=== PATIENT | female | born 1995 | race Two or more races ===

== ENCOUNTER 2020-11-30 23:13 | Emergency (ER) | payer OTHER, SELFPAY ==
[2020-11-30 23:19] VITALS: BP 142/72; PULSE 93; RESP 16; TEMP 37.2; O2SAT 98
--- NOTE | 2020-12-01 00:27 | ED_ITS ---
HPI - Female Genitourinary General Chief complaint: Urogenital-Female Stated complaint: ?UTI Time Seen by Provider: 11/30/20 23:26 Source: patient Mode of arrival: ambulatory History of Present Illness HPI Narrative: 25-year-old female with no significant past medical history presenting to the ED complaining of dysuria and urinary frequency since yesterday. Also reports lower abdominal discomfort and left low back pain. Reports episode of pinkish tinged urine. Denies fever, chills, nausea, vomiting, vaginal bleeding/discharge LMP end of September, admits to just recently changing control MD elicited complaint: dysuria and UTI Related Data Previous Rx's Medication Instructions Recorded cefuroxime axetil 250 mg PO Q12H 7 Days #14 tab 12/01/20 phenazopyridine [Pyridium] 200 mg PO TID 2 Days #5 tab 12/01/20 Allergies Allergy/AdvReac Type Severity Reaction Status Date / Time phenylephrine Allergy Unknown hives Verified 07/12/15 00:00 NADECOM Allergy Unknown RASH Uncoded 08/15/20 18:40 Review of Systems Review of Systems: Constitutional: No Weight loss, No Fever, No Chills Gastrointestinal: No Nausea, No Vomiting, No Diarrhea, No Constipation, + Abdominal pain Genitourinary: No irregular bleeding, + Dysuria, + Urinary Frequency, No Hematuria, +Urgency, No Flank Pain, No vaginal discharge Musculoskeletal: No joint pain, No Myalgias, No Joint Swelling Skin: No Skin Lesions, No rash Yes all other systems are reviewed and are negative PMFSH Past Medical History Attestation statement: The following information was validated with the patient. Social History Social History Advance Directives: No Advance Directives Information Provided: No Physical Exam Vital Signs: Vital Signs: Last Vital Signs Temp 99 F 11/30/20 23:19 Pulse 93 11/30/20 23:19 Resp 16 11/30/20 23:19 BP 142/72 H 11/30/20 23:19 Pulse Ox 98 11/30/20 23:19 Body Mass Index 0.0 Const: General: cooperative and healthy appearing Orientation/consciousness: patient oriented x3 Limitations: no limitations HENMT: Head: Yes normal to inspection Ears: hearing grossly normal bilaterally General nose exam: Normal external nose present Face and sinus: Yes normal facial exam Eyes: General: appearance normal, both eyes and all related structures EOM: EOMs intact bilaterally Neck: Neck: Yes normal visual inspection Resp: Effort & Inspection: normal respiratory effort Cardio: Rate: regular rate GI: Inspection: Yes normal to inspection Palpation (GI): Soft to palpation, nontender, no guarding and not rigid : General: Yes no CVA tenderness Back/Spine/Pelvis: Back: no CVA tenderness Skin: Rashes: no rashes Wounds: no wounds Neuro: General: patient oriented x3 Gait exam (Neuro): Normal gait present Extrem: General: Yes normal to inspection Course Course Course Narrative: * Urine infected > 1st dose of Ceftin given in the ED. Strict return precautions and worrisome signs and symptoms including continued dysuria, continued or worsening abdominal pain, fever to return to the ED MDM - Female Genitourinary MDM Narrative Medical decision making narrative: 25-year-old female with no significant past medical history presenting to the ED complaining of dysuria and urinary frequency since yesterday. On exam VSS, NAD, nontoxic, abdomen soft/nontender, no CVAT. Concern for UTI. Lower concern for pyelo, renal stone, di verticulitis/appendicitis, ovarian torsion or cyst w/o ttp on exam. Low concern for STI w/o vaginal discharge Plan: UA, U- Lab Data Labs: Lab Results 12/01/20 Range/Units 00:50 Urine Color YELLOW Urine Appearance CLOUDY Urine pH 6.0 (5.0-8.0) Ur Specific [place] 1.025 (1.005-1.025) Urine Protein 2+ H (NEG-TRACE) MG/DL Urine Glucose (UA) NEG (NEG) MG/DL Urine Ketones NEG (NEG) MG/DL Urine Blood 3+ H (NEG) Urine Nitrite NEG (NEG) Ur Leukocyte Esterase 1+ H (NEG) Urine RBC 76-150 H (0) /HPF Urine WBC 76-150 H (0-4) /HPF Ur Squamous Epith Cells 1+ /LPF Urine Bacteria 2+ /LPF Discharge Plan Discharge Clinical Impression: Urinary tract infection Patient Disposition: Home, Self-Care Instructions: Urinary Tract Infection in Women (ED) Additional Instructions: You have a urinary tract infection Ceftin as an antibiotic, take as prescribed Pyridium will help with the discomfort Make sure staying hydrated at home If the burning when you pee continues, he developed constant worsening abdominal pain, back pain, or fevers return to the ED immediately Follow up nilesh Jay Prescriptions: New cefuroxime axetil 250 mg tablet 250 mg PO Q12H 7 Days Qty: 14 RF: 0 phenazopyridine [Pyridium] 200 mg tablet 200 mg PO TID 2 Days Qty: 5 RF: 0 Referrals: Physician,Unknown [Primary Care Provider] - 2 days
[2020-12-01 01:35] LABS: Glucose Urine UA NEG (NEG); Leukocyte Esterase Urine 1+ (NEG); Nitrite Urine NEG (NEG); Specific Gravity - Urine 1.025 (1.005-1.025); Urine Blood 3+ (NEG); Urine Ketones NEG (NEG); Urine Protein 2+ MG/DL (NEG-TRACE)
[2020-12-01 01:38] LABS: Appearance Urine CLOUDY; Color Urine YELLOW
[2020-12-01 02:03] LABS: Bacteria Urine 2+ /LPF; Squamous Epithelial Cell Urine 1+ /LPF
[2020-12-01 02:06] LABS: UPreg QC Valid YES; Urine Pregnancy NEGATIVE (NEGATIVE)
[2020-12-01] MEDS: Phenazopyridine HCL 200 MG TABLET PO (02:23)
== END 2020-12-01 02:40 | disposition home or self-care (01) ==
PROVIDERS: Emergency Medicine; Emergency Provider Internal Medicine
DX: N39.0 Urinary tract infection, site not specified (principal); Z79.899 Other long term (current) drug therapy
CPT/HCPCS: 81001; 81003; 81025; 87086; 99283

== ENCOUNTER → 2021-01-23 11:44 | Outpatient (BNVA) | payer OTHER, SELFPAY | PROVIDERS: Visit Provider Advanced Practice Midwife | DX: N92.6 Irregular menstruation, unspecified (principal) | CPT/HCPCS: 81025 ==

== ENCOUNTER 2022-10-16 17:51 | Emergency (ER) | payer OTHER, SELFPAY ==
--- NOTE | 2022-10-16 19:20 | ED.ABDPAIN ---
HPI - Abdominal Pain General Chief Complaint: Abdominal Pain Stated Complaint: upper abd pain Related Data Previous Rx's Medication Instructions Recorded cefuroxime axetil 250 mg tablet 250 mg PO Q12H 7 days #14 tabs 12/01/20 phenazopyridine 200 mg tablet 200 mg PO TID 2 days #5 tabs 12/01/20 (Pyridium) vits no.130-ferrous fum 1 tab PO DAILY #30 tabs 01/23/21 27 mg iron-folic acid 800 mcg tablet ( Vitamin) Allergies Allergy/AdvReac Type Severity Reaction Status Date / Time phenylephrine Allergy Unknown hives Verified 10/16/22 19:22 topiramate Allergy Unknown Verified 10/16/22 19:23 NADECOM Allergy Unknown RASH Uncoded 10/16/22 19:22 PMFSH Family History Family History Maternal Grandmother Breast cancer Maternal Aunt Breast cancer Social History Social History Alcohol intake: never Advance Directives: No Advance Directives Information Provided: Yes Sexual orientation: Straight/Heterosexual Gender identity: Female Physical Exam ED Vital Signs: Vital Signs - 24 hr 10/16/22 19:21 Temperature 97.7 F Pulse Rate 88 Respiratory Rate 16 Blood Pressure 156/79 H Pulse Oximetry 98 Oxygen Delivery Method Room Air BMI result Body Mass Index 29.7 Course Course Course Narrative: RME--27yo F c/o epigastric abd pain radiating to back x3 hrs with assoc nausea. Pain began after eating. denies SOB, fever, chills, cough, D/C, urinary sx Abdomen soft with epigastric tenderness Labs, UA, , p.o. Maalox/Pepcid/sublingual Zofran ordered in triage Discharge Plan Discharge Clinical Impression: Abdominal pain Patient Disposition: Left Without Being Seen Interventions: LWBS Worksheet Last Done: 10/16/22 21:06 Discharge Date/Time: 10/16/22 21:06
[2022-10-16 19:21] VITALS: BP 156/79; PULSE 88; RESP 16; TEMP 36.5; O2SAT 98; BMI 29.7
--- NOTE | 2022-10-16 20:31 | PC.NURSE ---
this pct has been calling pt several times to draw labs ,with no responce ,jahaira romero aware .
== END 2022-10-16 21:06 | disposition left against medical advice (07) ==
PROVIDERS: Emergency Provider Emergency Medicine
DX: R10.9 Unspecified abdominal pain (principal); Z79.899 Other long term (current) drug therapy
CPT/HCPCS: 99282; 99283

== ENCOUNTER 2024-01-06 17:59 | Emergency (ER) | payer OTHER, SELFPAY ==
[2024-01-06 18:15] VITALS: BP 157/96; PULSE 96; RESP 14; TEMP 36.1; O2SAT 99; BMI 27.7
--- NOTE | 2024-01-06 18:16 | ED_ITS ---
HPI - Back Pain/Injury General Chief Complaint: Back Pain/Injury Stated Complaint: lower back pain Time Seen by Provider: 01/06/24 18:25 Source: patient Mode of arrival: ambulatory Limitations: no limitations History of Present Illness HPI Narrative: 28 year old female with no significant past medical history presents to the emergency department with complaints of left low back pain since last Wednesday. She reports she was seen at [facility] on Wednesday. CT back and urine negative. Prescribed diazepam with no relief in symptoms. Cyclobenzaprine also prescribed which helped with pain but made her very somnolent and she discontinued it bc she felt it was unsafe to use around her children. No trauma. Started at work and has been getting worse. No saddle anesthesias, urinary hesitancy or incontinence, paresthesias, change in range of motion or gait Related Data Previous Rx's Medication Instructions Recorded cefuroxime axetil 250 mg tablet 250 mg PO Q12H 7 days #14 tabs 12/01/20 phenazopyridine 200 mg tablet 200 mg PO TID 2 days #5 tabs 12/01/20 (Pyridium) vits no.130-ferrous fum 1 tab PO DAILY #30 tabs 01/23/21 27 mg iron-folic acid 800 mcg tablet ( Vitamin) diclofenac sodium 1 % topical gel 4 g topical QID #100 grams 01/06/24 lidocaine 5 % topical patch 1 patch topical DAILY #30 ea 01/06/24 Allergies Allergy/AdvReac Type Severity Reaction Status Date / Time phenylephrine Allergy Unknown hives Verified 10/16/22 19:22 topiramate Allergy Unknown Verified 10/16/22 19:23 NADECOM Allergy Unknown RASH Uncoded 10/16/22 19:22 Review of Systems Review of Systems: Yes all other systems are reviewed and are negative [facility] Past Medical History Attestation statement: The following information was validated with the patient. Family History Family History Maternal Grandmother Breast cancer Maternal Aunt Breast cancer Social History Social History Alcohol intake: never Advance Directives: No Advance Directives Information Provided: No Sexual orientation: Straight/Heterosexual Gender identity: Female Physical Exam Vital Signs: Vital Signs: Last Vital Signs Temp 96.9 F 01/06/24 18:15 Pulse 96 01/06/24 18:15 Resp 14 01/06/24 18:15 BP 157/96 H 01/06/24 18:15 Pulse Ox 99 01/06/24 18:15 O2 Del Method Room Air 01/06/24 18:15 BMI result Body Mass Index 27.7 Nursing notes and vital signs reviewed. GENERAL APPEARANCE: A&0 x 4, generally well appearing, no acute distress HENMT: Normal to inspection, atraumatic, face symmetrical. Normal external ears, nose, and oropharynx clear. EYE: PERRLA, EOM intact, structures appear normal NECK: Supple without stiffness or restricted ROM. HEART: Normal rate and regular rhythm, normal S1/S2, no M/R/G LUNGS: LS CTA, moving air well. Able to speak in complete sentences. No crackles, wheezes, or rhonchi auscultated BACK: No CVAT, no obvious deformity. Tenderness to low back on palpation. No swelling, erythema, or ecchymosis EXTREMITIES: Moving all extremities without difficulty. Normal capillary refill. NEUROLOGICAL: Alert and oriented, moving all 4 extremities with equal strength. CN not formally tested but appearing grossly intact. Observed to ambulate with normal gait. Cognition normal SKIN: Warm and dry without any lesions, rash, or visible sores Medical Decision Making Medical Decision Making MDM Narrative: Old records reviewed for previous imaging, lab studies, ECGs, and notes. Patient was assessed the emergency department with no acute distress or toxicity noted. Patient's symptoms are consistent with a low back strain with low suspicion at this time for stenosis, cauda equina, abscess, sepsis, or malignancy. Lidocaine patches and diclofenac ointment since patient preferred pharmacy for further management of discomfort. Patient is safe for discharge at this time with plan for [id number] Tylenol and/or NSAID such as ibuprofen or naproxen for fever/discomfort with dosing as per packaging. HPI, PE, diagnostics, and plan discussed with patient and family with no unanswered questions at this time. Strict return precautions given to return to the emergency department with new, worsening, or concerning emergent symptoms. Recommended to follow-up with there primary care provider in 24-48 hours for further treatment and management. Differential Diagnosis Differential Diagnoses: The differential diagnosis associated with the presentation includes But not limited to strain, sprain, nephrolithiasis, pyelonephritis cystitis, cauda equina, epidural abscess, stenosis, sepsis, or malignancy Discharge Plan Discharge Clinical Impression: Strain of lumbar region Patient Disposition: Home, Self-Care Instructions: Back Pain (ED), Lower Back Exercises (ED) Additional Instructions: Your seen in the emergency department for concerns of low back pain. Lidocaine patches and diclofenac ointment sent to preferred pharmacy. You are safe for discharge at this time with plan for management of fever or discomfort with [id number] Tylenol and/or NSAID such as ibuprofen or naproxen with dosing as per packaging. Please return to the emergency department with new, worsening, or concerning emergent symptoms. Recommended to follow-up with your primary care provider in 24-48 hours for further treatment and management. Thank you for choosing [facility]. Prescriptions: New lidocaine 5 % adhesive patch,medicated 1 patch topical DAILY Qty: 30 0RF Rx Instructions: leave on most painful area for up to 12 hrs diclofenac sodium 1 % gel 4 g topical QID Qty: 100 0RF Rx Instructions: apply to low back No Action cefuroxime axetil 250 mg tablet 250 mg PO Q12H 7 Days Qty: 14 0RF phenazopyridine [Pyridium] 200 mg tablet 200 mg PO TID 2 Days Qty: 5 0RF Vitamin 27 mg iron- 800 mcg tablet 1 tab PO DAILY Qty: 30 12RF Referrals: [facility] – [place] Family Medicine [Provider Group] [facility] – [place] [facility] [Provider Group] [facility] – [place] [facility] [Provider Group] Stand Alone Forms: Work/School Release Interventions: ED Discharge Assessment Last Done: 01/06/24 18:41 Discharge Date/Time: 01/06/24 18:41 Print Language: Hungarian
== END 2024-01-06 18:42 | disposition home or self-care (01) ==
PROVIDERS: Emergency Provider Emergency Medicine; PCP Registered Nurse
DX: S39.012A Strain of muscle, fascia and tendon of lower back, initial encounter (principal); X58.XXXA Exposure to other specified factors, initial encounter; Y93.9 Activity, unspecified; Y92.9 Unspecified place or not applicable; Y99.8 Other external cause status; Z79.899 Other long term (current) drug therapy
CPT/HCPCS: 99282; 99283

== ENCOUNTER 2025-01-04 16:23 | Emergency (ER) | payer OTHER, SELFPAY ==
--- NOTE | ~2025-01-04 | XR_ITS ---
EXAMINATION: XR CHEST CLINICAL INFORMATION: cough COMPARISON: None available. TECHNIQUE: Frontal view of the chest was obtained. FINDINGS: No significant abnormality is noted involving the heart, lungs, mediastinum, bony thorax or soft tissues. XR/XR chest 1V IMPRESSION: Normal chest. Electronically signed by: Von Borja MD 01/04/2025 04:53 PM [facility]
[2025-01-04 16:30] VITALS: BP 144/92; PULSE 104; RESP 20; TEMP 36.9; O2SAT 100; BMI 27.7
--- NOTE | 2025-01-04 16:33 | ED_ITS ---
HPI - SOB/Dyspnea General Chief Complaint: Dyspnea Stated Complaint: sob,hoarseness Time Seen by Provider: 01/04/25 18:26 Source: patient Limitations: no limitations History of Present Illness ED Provider: Marianna Tubbs PA-C HPI Narrative: 29-year-old female who presents with cough and cold symptoms x4 days. Associated sore throat, pharyngitis, cough and shortness of breath. Denies trismus, drooling, chest pain or known fever. No sick contacts with same symptoms. Denies nausea vomiting diarrhea. Related Data Previous Rx's ?Medication ?Instructions ?Recorded cefuroxime axetil 250 mg tablet 250 mg PO Q12H 7 days #14 tabs 12/01/20 phenazopyridine 200 mg tablet 200 mg PO TID 2 days #5 tabs 12/01/20 (Pyridium) vits no.130-ferrous fum 1 tab PO DAILY #30 tabs 01/23/21 27 mg iron-folic acid 800 mcg tablet ( Vitamin) diclofenac sodium 1 % topical gel 4 g topical QID #100 grams 01/06/24 lidocaine 5 % topical patch 1 patch topical DAILY #30 ea 01/06/24 Allergies Allergy/AdvReac Type Severity Reaction Status Date / Time phenylephrine Allergy Unknown hives Verified 01/04/25 16:30 topiramate Allergy Unknown Verified 01/04/25 16:30 NADECOM Allergy Unknown RASH Uncoded 01/04/25 16:30 Review of Systems Review of Systems: Yes all other systems are reviewed and are negative Constitutional: Constitutional: Reports fatigue, Reports fever(s) and Reports malaise ENT: Reports sore throat Cardiovascular: Cardiovascular: Denies chest pain and Reports dyspnea Respiratory: Respiratory: Denies chest congestion, Reports cough, Reports dyspnea and Denies wheezing Gastrointestinal: Gastrointestinal: Denies diarrhea, Denies nausea and Denies vomiting Endocrine: Endocrine: Reports fatigue Allergic/Immunologic: Allergic/Immunologic: Denies wheezing PMFSH Past Medical History Attestation statement: The following information was validated with the patient. Family History Family History Maternal Grandmother Breast cancer Maternal Aunt Breast cancer Social History Social History Alcohol intake: never Advance Directives: No Advance Directives Information Provided: No Do you have a plan to hurt others: No Plan Sexual orientation: Straight/Heterosexual Gender identity: Female Physical Exam Vital Signs: Vital Signs: Last Vital Signs Temp 98.4 F 01/04/25 18:30 Pulse 100 01/04/25 18:30 Resp 16 01/04/25 18:30 BP 155/87 H 01/04/25 18:30 Pulse Ox 99 01/04/25 18:30 O2 Del Method Room Air 01/04/25 18:30 BMI result Body Mass Index 27.7 Const: Other: Alert well-appearing Orientation/consciousness: patient oriented x3 HEENT: Other: Oropharynx is erythematous, without exudate, uvula midline, no sublingual fluctuance, no swelling inferior to the jawline, hoarse quality of her voice Neck: Other: Minimal anterior cervical lymphadenopathy Resp: Effort & Inspection: normal respiratory effort Cardio: Other: Normal peripheral perfusion Skin: Other: Warm dry no rash Neuro: General: patient oriented x3, gait normal, no focal motor deficits and CN's II-XI intact bilaterally Psych: Other: Calm cooperative Course Course Course Narrative: This is a rapid medical exam performed by Marianna Tubbs PA-C. Patient is a 29-year-old female who presents with cough and cold symptoms x4 days. Associated sore throat, pharyngitis, cough and shortness of breath. Denies fever. On exam, the patient's lungs are clear, her oropharynx is erythematous without exudate, uvula midline. Plan to obtain a rapid strep, chest x-ray and viral panel. The patient is stable and can return to the waiting room pending her full medical assessment. Medical Decision Making Medical Decision Making MDM Narrative: 29-year-old female who presents with cough and cold symptoms x4 days. Associated sore throat, pharyngitis, cough and shortness of breath. Denies trismus, drooling, chest pain or known fever. No sick contacts with same symptoms. Denies nausea vomiting diarrhea. No chronic issues History: Per patient I have considered the following differential diagnoses: Viral syndrome, pn eumonia, bronchitis, strep pharyngitis, RPA, RATE QUOTING OPERATOR Plan: Viral panel, strep screen and chest x-ray were obtained from triage. Everything is negative thus far. The patient has no exam findings that are consistent with RPA or RATE QUOTING OPERATOR. She has no wheezing in her lungs are clear to suggest a new bronchitis. The patient has yet another virus causing your symptoms. We will send with home care instructions. I have independently reviewed the following tests: Labs: Viral panel negative, strep screen negative Chest x-ray: XR/XR chest 1V IMPRESSION: Normal chest. Electronically signed by: Von Borja MD 01/04/2025 04:53 PM [facility] Workstation: [id number] Lab Data Labs: Lab Results 01/04/25 Range/Units 16:46 Influenza Type A (PCR) NEGATIVE (Negative) Influenza Type B (PCR) NEGATIVE (Negative) RSV RNA Qual (PCR) NEGATIVE (Negative) SARS-CoV-2 RNA (RT-PCR) NEGATIVE (Negative) S. pyogenes GrpA CHICO Negative (Negative) Discharge Plan Discharge Clinical Impression: Acute viral syndrome, Pharyngitis, Laryngitis Patient Disposition: Home, Self-Care Instructions: Viral Syndrome (ED), Laryngitis (ED), Pharyngitis (ED) Additional Instructions: You were tested for influenza a and B, RSV and COVID, the viral panel was negative. You were screened for strep throat, this was negative your chest x- ray is clear. You have yet another virus causing your symptoms. See home care instructions. Follow up with your primary care provider as needed. Prescriptions: No Action cefuroxime axetil 250 mg tablet 250 mg PO Q12H 7 Days Qty: 14 0RF phenazopyridine [Pyridium] 200 mg tablet 200 mg PO TID 2 Days Qty: 5 0RF lidocaine 5 % adhesive patch,medicated 1 patch topical DAILY Qty: 30 0RF Rx Instructions: leave on most painful area for up to 12 hrs diclofenac sodium 1 % gel 4 g topical QID Qty: 100 0RF Rx Instructions: apply to low back Vitamin 27 mg iron- 800 mcg tablet 1 tab PO DAILY Qty: 30 12RF Stand Alone Forms: Work/School Release Print Language: Pashto
[2025-01-04 17:00] LABS: IDNOW Serial# 08D9AD1C; Strep A Nucleic Acid Negative (Negative)
[2025-01-04 17:29] LABS: Influenza A PCR NEGATIVE (Negative); Influenza B PCR NEGATIVE (Negative); Resp Syncy Virus RNA Qual PCR NEGATIVE (Negative); SARS COV2 PCR INHOUSE NEGATIVE (Negative)
[2025-01-04 18:30] VITALS: BP 155/87; PULSE 100; RESP 16; TEMP 36.9; O2SAT 99
[2025-01-04 18:58] VITALS: BP 155/87; PULSE 100; RESP 16; TEMP 36.9; O2SAT 99
== END 2025-01-04 18:58 | disposition home or self-care (01) ==
PROVIDERS: Physician Assistant Medical; Emergency Provider Emergency Medicine; PCP Registered Nurse
DX: B34.9 Viral infection, unspecified (principal); R06.02 Shortness of breath; J04.0 Acute laryngitis; R49.0 Dysphonia; R05.9 Cough, unspecified; R06.9 Unspecified abnormalities of breathing; Z03.818 Encounter for observation for suspected exposure to other biological agents ruled out
CPT/HCPCS: 0241U; 71045; 87651; 99283

== ENCOUNTER → 2025-01-04 16:32 | Outpatient (BNV) | payer OTHER, SELFPAY | PROVIDERS: PCP Registered Nurse; Visit Provider Radiology Diagnostic Radiology | DX: R07.9 Chest pain, unspecified (principal) | CPT/HCPCS: 71045 ==

== ENCOUNTER 2025-05-24 16:22 | Emergency (ER) | payer OTHER, SELFPAY ==
[2025-05-24 16:49] VITALS: BP 151/94; PULSE 87; RESP 18; TEMP 36.6; O2SAT 97; BMI 27.7
--- NOTE | 2025-05-24 16:50 | ED_ITS ---
HPI - General Adult General Chief complaint: General Medical Stated complaint: high bp Time Seen by Provider: 05/24/25 16:58 Source: patient and RN notes reviewed Mode of arrival: ambulatory Limitations: no limitations History of Present Illness ED Provider: Patricia Serrano PA-C HPI narrative: This is a 80-year-old female, with no known medical problems, who presents emergency department with complaints of elevated blood pressure reading which occurred today. Patient states that at her work they were performing vital signs screenings, and her blood pressure was found to be elevated, 150s over 110s. Patient denies any history of elevated blood pressure however states that she has been told that her primary care was watching this as she occasionally has elevated readings. She does not take her blood pressure at home. She states that she is feeling well. She admits to having a headache this morning however states that this was consistent with her migraines that she gets, and was relieved with ibuprofen. She is currently asymptomatic. Denies any current headache, dizziness, blurred vision, chest pain, shortness for breath, abdominal pain, nausea, vomiting or diarrhea. She is not . No other complaints or concerns at this time. MD complaint: Elevated blood pressure Onset (ago): day(s) Quality: aching Pain Consistency: constant Relieving factors: none Exacerbating factors: none Associated symptoms: denies other symptoms Treatments prior to arrival: none Related Data Previous Rx's ?Medication ?Instructions ?Recorded cefuroxime axetil 250 mg tablet 250 mg PO Q12H 7 days #14 tabs 12/01/20 phenazopyridine 200 mg tablet 200 mg PO TID 2 days #5 tabs 12/01/20 (Pyridium) vits no.130-ferrous fum 1 tab PO DAILY #30 ta bs 01/23/21 27 mg iron-folic acid 800 mcg tablet ( Vitamin) diclofenac sodium 1 % topical gel 4 g topical QID #100 grams 01/06/24 lidocaine 5 % topical patch 1 patch topical DAILY #30 ea 01/06/24 Allergies Allergy/AdvReac Type Severity Reaction Status Date / Time phenylephrine Allergy Unknown hives Verified 05/24/25 16:52 topiramate Allergy Unknown Verified 05/24/25 16:52 NADECOM Allergy Unknown RASH Uncoded 05/24/25 16:52 Review of Systems Review of Systems: Yes all other systems are reviewed and are negative Constitutional: Constitutional: Reports as per HPI [facility] Family History Family History Maternal Grandmother Breast cancer Maternal Aunt Breast cancer Social History Social History Alcohol intake: never Advance Directives: No Advance Directives Information Provided: No Do you have a plan to hurt others: No Plan Sexual orientation: Straight/Heterosexual Gender identity: Female Physical Exam ED Vital Signs: Vital Signs - 24 hr 05/24/25 16:49 05/24/25 17:11 Temperature 97.8 F 97.8 F Pulse Rate 87 87 Respiratory Rate 18 18 Blood Pressure 151/94 H 151/94 H Pulse Oximetry 97 97 Oxygen Delivery Method Room Air Room Air BMI result Body Mass Index 27.7 Const General: cooperative, comfortable and no acute distress Orientation/consciousness: patient oriented x3 Limitations: no limitations HENMT Head: Yes normal to inspection, Yes normocephalic and Yes atraumatic Ears: hearing grossly normal bilaterally General nose exam: Normal external nose present Face and sinus: Yes normal facial exam Mouth: Normal oral and palatal mucosa present, oropharynx normal and moist mucous membranes Throat: Yes posterior oropharynx normal Eyes General: appearance normal, both eyes and all related structures Eyelids: Yes eyelids normal Conjunctivae: conjunctivae normal Sclerae: sclerae normal Pupils: Equal, round and reactive pupils present EOM: EOMs intact bilaterally Neck Neck: Yes normal visual inspection, Yes full ROM and Yes no lymphadenopathy Lymphatic: no lymphadenopathy noted Chest Chest palpation & inspection: normal inspection of the chest Resp Effort & Inspection: normal respiratory effort and able to speak in complete sentences Auscultation: clear to auscultation bilaterally, no crackles, no rales, no rhonchi and no wheezes Cardio Rate: regular rate Rhythm: regular rhythm Heart sounds: S1 normal heart sound present and S2 normal heart sound present GI Inspection: Yes normal to inspection Skin General skin exam: no rashes or lesions noted Trauma: no lacerations or abrasions Wounds: no wounds Neuro General: patient oriented x3 and moves all extremities Cranial nerves: Yes Equal, round and reactive pupils present Extrem General: Yes normal to inspection Right upper extremity: normal to inspection Left upper extremity: normal to inspection Right lower extremity: normal to inspection Left lower extremity: normal to inspection Course Course Course Narrative: This is an RME: Additional HPI, ROS, PE not included below will be deferred to primary provider. RME assessment and note performed by: Patricia Serrano PA-C This is a [id number]-female who presents to the ER with a complaint of elevated BP. She states that at her work was performing a vital signs screening and her BP was found to be elevated. BP at work at 158/110. BP today is 151/94. She has no headache, dizziness, blurred vision. Plan: Medical Decision Making Medical Decision Making MDM Narrative: This is a 30-year-old female who presents emergency department with concerns of elevated blood pressure reading which occurred outpatient. Patient reports that she is feeling well, denies any current concerns. Blood pressure taken here in the emergency department is 151/94. Given patient is asymptomatic, no additional workup indicated at this time. I stressed the importance of getting a blood pressure cuff today, and taking it 2 times a day and recording this measure. I also discussed with patient that she should follow-up with her primary care physician. It is ill advised to start her on any hypertensive medications however I stressed if she develops any new or worsening symptoms including but not limited to lightheadedness, dizziness, blurred vision, double vision, chest pain or shortness for breath to immediately seek emergent care. She understands and agrees with plan. Patient stable for discharge Differential Diagnosis Differential Diagnoses: The differential diagnosis associated with the presentation includes Hypertensive urgency, hypertensive emergency, elevated blood pressure reading, anxiety, worried/well Discharge Plan Discharge Clinical Impression: Elevated blood pressure reading Patient Disposition: Home, Self-Care Instructions: How to Take a Blood Pressure Reading (ED) Additional Instructions: You were seen in the emergency room due to an elevated Blood pressure. Your blood pressure today was 151/94. Please take your blood pressure twice a day, please ensure that you are resting comfortably, feet planted on the floor, with a surface against your back. Rest comfortably without speaking for 5-10 minutes and take a blood pressure. Make sure you get a blood pressure cuff that goes on your upper arm. Cord this blood pressure reading. Please take these readings to your primary care physician as they can see if you need to be started on a blood pressure medication. If any new or worsening symptoms occur including but not limited to severe chest pain, dizziness, double vision, blurred vision, shortness of breath, please seek emergent care. Prescriptions: No Action cefuroxime axetil 250 mg tablet 250 mg PO Q12H 7 Days Qty: 14 0RF phenazopyridine [Pyridium] 200 mg tablet 200 mg PO TID 2 Days Qty: 5 0RF lidocaine 5 % adhesive patch,medicated 1 patch topical DAILY Qty: 30 0RF Rx Instructions: leave on most painful area for up to 12 hrs diclofenac sodium 1 % gel 4 g topical QID Qty: 100 0RF Rx Instructions: apply to low back Vitamin 27 mg iron- 800 mcg tablet 1 tab PO DAILY Qty: 30 12RF Stand Alone Forms: Work/School Release Interventions: ED Discharge Assessment Last Done: 05/24/25 17:11 Discharge Date/Time: 05/24/25 17:11 Print Language: Chinese
[2025-05-24 17:11] VITALS: BP 151/94; PULSE 87; RESP 18; TEMP 36.6; O2SAT 97
--- OUTSIDE RECORDS SUMMARY | 2025-05-24 19:53 | XMS_ITS | Clinical Summary ---
Author Organization [facility] Address [address] [place] [address] Care Team Providers Care Solar Energy System Installer Name Role Phone Justin Moreno Primary Care Provider [phone] Source Comments PLEASE NOTE, if this patient is a minor, it may be UNLAWFUL to discuss sensitive information that is contained in these records (such as FAMILY PLANNING, MENTAL HEALTH or SUBSTANCE ABUSE) with the minor patient's parent or other person without the patient's specific authorization.[facility] Allergies Active Allergy Reactions Criticality Noted Date Comments Dextromethorphan-Guaife nesin Hives,Swelling High 01/09/2016 Discovered when pt was 7 y/o Medications ibuprofen (ADVIL,MOTRIN) 600 mg tabletIndication s:Generalized headaches Take 1 Tab by mouth 4 (four) times daily as needed for pain. 60 Tab 5 03/26/2016 Active loratadine (CLARITIN) 10 mg tabletIndication s:Other seasonal allergic rhinitis Take 1 Tab by mouth once daily as needed for allergies. 30 Tab 5 03/26/2016 Active nitrofurantoin monohyd/m-cryst (MACROBID) 100 mg capsule Take 100 mg by mouth 2 (two) times daily 0 07/31/2019 Active Active Problems Problem Noted Date Diagnosed Date Encounter for gynecological examination with Papanicolaou smear of cervix 08/08/2020 Overview (08/08/2020): NEGATIVE ASCUS NEGATIVE HPV Generalized headaches 03/26/2016 Allergic rhinitis 03/26/2016 H/O ovarian cystectomy 02/24/2016 Overview (02/24/2016): Per previous PCP at [facility] 01/29/2016 Overview (01/29/2016): Inserted 12/12/15 by Toyin Lockwood DO at [facility] Women H/O gestational diabetes mellitus, not currently 01/09/2016 Immunizations Immunization Administration Dates Next Due Flu, Preservative Free 09/25/2019 Hep B, Adult/Adol (ENERGIX/RECOMBIVAX) 3 INFLUENZA, SEASONAL, INJECTABLE 09/02/2015 MMR (MMR II/Priorix) 06/16/2013 PPD 06/07/2013,05/12/2013 TDAP 09/16/2015,05/12/2013,02/15/2011 Family History Medical History Relation Name Comments Cancer Maternal Aunt 1 Breast CA Cancer Maternal Aunt 2 breast CA Hypertension Maternal Grandmother Hypertension Paternal Grandmother Mental illness Paternal Grandmother Alzhe cristal's Relation Name Status Comments Brother 1 Alive Brother 2 Alive Brother 3 Alive Brother 4 Alive Brother 5 Alive Daughter Alive Father Alive Maternal Aunt 1 Alive Maternal Aunt 2 Alive Maternal Grandmother Mother Alive Paternal Grandmother Alive Sister 1 Alive Sister 2 Alive Son Alive Social History Tobacco Use Types Packs/Day Years Used Date Smoking Tobacco: Never Smokeless Tobacco: Never Alcohol Use Standard Drinks/Week Comments No 0 (1 standard drink = 0.6 oz pur e alcohol) Social Connections Answer Date Recorded Connectedness 0 08/16/2024 Financial Resource Strain Answer Date R ecorded Financial Resource Strain 0 2018 Stress Answer Date Recorded Stress 0 09/25/2019 Physical Activity Answer Date Recorded Physical Activity 0 09/25/2019 Food Insecurity Answer Date Recorded Food 0 08/24/2024 Transportation Needs Answer Date Record ed Transportation 0 09/25/2019 Housing Stability Answer Date Recorded Housing 0 09/25/2019 Safety and Environment Answer Date Lloyd rded Safety 0 09/25/2019 Utilities Answer Date Recorded Utilities 0 09/25/2019 Employment Answer Date Recorded Stress 0 08/16/2024 Comments No Sex and Gender Information Value Date Recorded Sex Assigned at Female 09/25/2019 8:16 AM PDT Legal Sex Female 11:36 AM PDT Gender Identity Female 09/25/2019 8:16 AM PDT Sexual Orientation Straight 09/25/2019 8: 16 AM PDT Occupation Industry Job Start Date Job 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 Not on file Not on file Not on f ile Last Filed Vital Signs Vital Sign Reading Time Taken Comments Blood Pressure 126/90 07/22/2020 1:13 PM EDT Pulse 80 07/22/2020 1:13 PM EDT Temperature 36.9 C (98.4 F) 07/22/2020 1:13 PM EDT Respiratory Rate 18 07/22/2020 1:13 PM EDT Oxygen Saturation - - Inhaled Oxygen Concentration - - Weight 67.2 kg (148 lb 1.6 oz) 07/22/2020 1:13 P M EDT Height 154.9 cm (5' 1 ) 07/22/2020 1:13 PM EDT Body Mass Index 27.98 07/22/2020 1:13 PM EDT Plan of Treatment Health Maintenance Due Date Last Done Comments Anxiety Screening 1994 HPV Screening 1994 Pap + HPV 1994 Tobacco Screening 1994 HIV Screening 2009 Imm-Hepatitis B (2 of 3 - 19 + 3-dose series) 07/05/2013 06/07/2013 Annual Wellness (Adult): Ind icated (All Coverage) 09/25/2020 09/25/2019, 03/26/2016 Relationship Safety Screening/Counseling 09/25/2020 09/25/2019 Cervical Cancer Screening 07/22/2023 Hypertension Screening (#1) 07/22/2023 Pap Smear 07/22/2023 07/22/2020 [id number] ( season) 2024 Alcohol and Drug Screen 11/29/2024 09/25/2019, 01/09 Depression Annual Screen 11/29/2024 09/25/2019 Imm-Influenza (Season Ended) 2025 09/25/2019, 09/02/2015 Imm-DTaP/Tdap/Td (4 - Td or Tdap) 09/16/2025 09/16/2015, 05/12/2013, 02/15/2011 Hepatitis C Screening Completed 09/25/2019 Cervical Ablation/Cold-Knife Conization Discontinued Cervical Cryotherapy Discontinued Colposcopy Discontinued Endometrial Biopsy Discontinued Excision/Leep Discontinued HPV Genotyping Discontinued Vaginal Pap Discontinued Vulvoscopy Discontinued Procedures Procedure Name Priority Date/Time Associated Diagnosis Comments PAP, LIQUID BASED Routine 07/22/2020 1:3 8 PM EDT Encounter for gynecological examination with Papanicolaou smear of cervix HEPATITIS A,B,C PANEL Routine 09/25/2019 11:43 AM EDT Routine adult health maintenance from Last 3 Months or Most Recently Relevant to Health Maintenance Results * PAP, LIQUID BASED (07/22/2020 1:38 PM EDT) PAP NORMAL NORMAL - ABNORMAL [facility] Specimen from uterine cervix (specimen) Cervix uteri structure / Unknown 07/22/2020 1:38 PM EDT Maria Esther [facility] - 08/08/2020 5:23 PM EDT NEGATIVE ASCUS NEGATIVE HPV Maude Falcon [facility] - PATHOLOGY AND CYTOLOG Y AMBULATORY Final Result Performing Organization Address City/State/[facility] Co de Phone Number [facility] [address] [address], * HEPATITIS A,B,C PANEL (09/25/2019 11:43 AM EDT) HEPATITIS B SURFACE ANTIBODY NEGATIVE NEGATIVE [facility] HEPATITIS B SURFACE ANTIGEN NEGATIVE NEGATIVE [facility] Comment: Over the counter supplements containing high doses of biotin may interfere with this assay. If interference is suspected, patients shoud be retested after refraining from biotin supplements for 72 hours. HEPATITIS C VIRUS DIAGNOSTIC NEGATIVE NEGATIVE [facility] HEPATITIS A ANTIBODY TOTAL NEGATIVE NEGATIVE [facility] Comment: Over the counter supplements containing high doses of biotin may interfere with this assay. If interference is suspected, patients shoud be retested after refraining from biotin supplements for 72 hours. HEPATITIS B CORE ANTIBODY NEGATIVE NEGATIVE [facility] Blood specimen (specimen) Blood / Unknown 09/25/2019 11:43 AM EDT 09/25/2019 1:09 PM EDT Maria Esther [facility] - 09/25/2019 7:21 PM EDT [employer], a member of [address] [place] [address] Instructor Painting - Maira Prieto [place] [id number] ORD# [id number] Justin [facility] - BLOOD DRAW Edited Result - Final [facility] [address] [place] [address], from Last 3 Months or Most Recently Relevant to Health Maintenance Insurance [employer] Care Teams [employer] System Installer Relationship Specialty Start Date End Date Justin Moreno PA [address] [place] [id number] PCP - General Internal Medicine 08/22/19
== END 2025-05-24 17:11 | disposition home or self-care (01) ==
LOC: HO.ED 17:01
PROVIDERS: Emergency Provider Internal Medicine; PCP Registered Nurse
DX: R03.0 Elevated blood-pressure reading, without diagnosis of hypertension (principal)
CPT/HCPCS: 99282

== ENCOUNTER 2025-06-12 12:47 | Emergency (ER) | payer OTHER, SELFPAY ==
--- NOTE | ~2025-06-12 | CT_ITS ---
EXAMINATION: CT HEAD WITHOUT CONTRAST CLINICAL INFORMATION: hypertensive, THOMPSON COMPARISON: None available. TECHNIQUE: Contiguous axial imaging was performed from the skull base to vertex without intravenous administration of contrast. This CT examination was performed using dose optimization techniques as appropriate, variously including the following: *Automated exposure control *Adjustment of mA and/or kV according to patient size (this includes techniques or standardized protocols for targeted exams where dose is matched to indication/reason for exam; i.e. extremities or head) *Use of iterative reconstruction technique DLP: 692 mGy-cm FINDINGS: No acute intracranial hemorrhage, mass effect, midline shift, hydrocephalus or herniation. Avila-white matter differentiation is normal. Posterior cranial fossa contents demonstrated no acute intracranial hemorrhage or mass effect. Normal position of the cerebellar tonsils. Sellar/suprasellar region demonstrated no gross masses or hemorrhage. Tympanic cavities and mastoid cells are aerated. Poor pneumatization of the frontal sinuses. No air-fluid levels in the paranasal sinuses. No gross hematoma or masses in the intraconal or extraconal compartments of the orbits. CT/CT head/brain wo IV con IMPRESSION: No acute or structural brain abnormality by CT. Electronically signed by: Paul Lopes MD 06/12/2025 03:27 PM EDT
[2025-06-12 12:49] VITALS: BP 157/81; PULSE 93; RESP 18; TEMP 36.6; O2SAT 98; BMI 27.7
--- NOTE | 2025-06-12 12:50 | ED_ITS ---
HPI - General Adult General Chief complaint: General Medical Stated complaint: high bp Time Seen by Provider: 06/12/25 16:38 Source: patient Mode of arrival: ambulatory Limitations: no limitations History of Present Illness ED Provider: FRANCY FRANCO PA-C HPI narrative: 30 year old female with pmhx significant for migraines presents to the ED today for evaluation of elevated blood pressure readings x weeks. Reports headache which began this morning. Her BP this morning was noted to be 155/102, prompting her to come to the ED for further evaluation. She reports taking Motrin this morning without much improvement. Denies any dizziness or vision changes. Denies chest pain or shortness of breath. She was recently evaluated at our facility for elevated blood pressure readings. Her blood pressure eventually normalized and she was advised to monitor her pressures at home with PCP follow up. She has not been started on any antihypertensives. She has not attempted to contact her PCP for follow-up. Related Data Previous Rx's ?Medication ?Instructions ?Recorded cefuroxime axetil 250 mg tablet 250 mg PO Q12H 7 days #14 tabs 12/01/20 phenazopyridine 200 mg tablet 200 mg PO TID 2 days #5 tabs 12/01/20 (Pyridium) vits no.130-ferrous fum 1 tab PO DAILY #30 ta bs 01/23/21 27 mg iron-folic acid 800 mcg tablet ( Vitamin) diclofenac sodium 1 % topical gel 4 g topical QID #100 grams 01/06/24 lidocaine 5 % topical patch 1 patch topical DAILY #30 ea 01/06/24 Allergies Allergy/AdvReac Type Severity Reaction Status Date / Time phenylephrine Allergy Unknown hives Verified 06/12/25 12:52 topiramate Allergy Unknown Verified 06/12/25 12:52 NADECOM Allergy Unknown RASH Uncoded 06/12/25 12:52 Review of Systems 2 Review of Systems: Constitutional: No fever, chills, fatigue, night sweats, weight changes ENT/Mouth: No ear pain, hearing loss, nasal congestion, sinus pain, rhinorrhea, sore throat Eyes: No eye pain, swelling, redness, vision changes, discharge Cardio: No chest pain, palpitations, [place], orthopnea, peripheral edema Pulm: No SOB, cough, sputum, wheezing, dyspnea, hemoptysis GI: No nausea, vomiting, hematemesis, abdominal pain, diarrhea, constipation, hematochezia, melena : No irregular bleeding, dysuria, frequency, urgency, hesitancy, hematuria, flank pain, urinary flow changes, urinary incontinence or retention MSK: No back pain, neck pain, joint pain, myalgias Skin: No lesions, rashes Neuro: No weakness, numbness, paresthesias, LOC, dizziness, +headache Psych: No anxiety/panic, depression, SI/HI, AH/VH All other systems reviewed and are negative. [facility] Past Medical History Attestation statement: The following information was validated with the patient. Source: old records reviewed and nursing notes reviewed Family History Family History Maternal Grandmother Breast cancer Maternal Aunt Breast cancer Social History Social History Alcohol intake: current Smoked in Last 30 Days: No Use of substances other than those prescribed or required for medical reasons: No Advance Directives: No Advance Directives Information Provided: No Do you have a plan to hurt others: No Plan Sexual orientation: Straight/Heterosexual Gender identity: Female Physical Exam ED Vital Signs: Vital Signs - 24 hr 06/12/25 12:49 06/12/25 16:18 06/12/25 16:44 Temperature 98 F 97.3 F 98.3 F Pulse Rate 93 88 86 Respiratory Rate 18 16 16 Blood Pressure 157/81 H 147/91 H 146/102 H Pulse Oximetry 98 100 100 Oxygen Delivery Method Room Air Room Air Room Air 06/12/25 18:08 06/12/25 18:26 Temperature 97.6 F 97.6 F Pulse Rate 76 76 Respiratory Rate 16 16 Blood Pressure 122/74 122/74 Pulse Oximetry 97 97 Oxygen Delivery Method Room Air Room Air BMI result Body Mass Index 27.7 hypertensive, vitals are otherwise wnl General: Well appearing, in no acute distress. Skin: Warm, dry, intact. No rashes or lesions. Head: Normocephalic, atraumatic. EENT: Hearing is intact b/l. Conjunctiva clear. PERRLA. EOM intact. Moist mucous membranes.? Neck: Supple without LAD. FROM Cardiac: Chest wall symmetric. RRR Lungs: Normal respiratory effort without accessory muscle use. CTA bilaterally Abdomen: Soft, non-tender, non-distended. No rebound tenderness or guarding. Positive BS x4. Back: No midline spinous or paraspinal tenderness. No step off deformity. Ext: Upper and lower extremities atraumatic, without tenderness, deformity, swelling or erythema Neuro: AOx3. Normal speech. Strength 5/5 intact throughout. No saddle anesthesia. Sensation intact to light touch. NV intact distally. Ambulating with steady gait. Course Course Course Narrative: 06/12/25 1251 [place] This is a Rapid Medical Examination (RME) performed by Mary Beth Franco PA-C in triage. Full HPI, ROS, assessment and treatment plan per primary provider in the Main ED. Hx: 30 yo F here for eval of elevated BP 150's/100's this morning w/ assoc THOMPSON. recent BP fluctuations. no vision changes. has not started on any antihypertensive. PE/vitals: normotensive. Plan: labs, CT Reevaluation(s) Reevaluation #1: CBC without leukocytosis or left shift. No anemia. H&H stable. Chemistry without acute electrolyte abnormality requiring intervention. No LIONEL. Liver function WNL. Beta quant undetectable. CT head unremarkable. > patient medicated with migraine cocktail (Toradol, Benadryl, Reglan) - reports significant improvement with headache. States she feels well. She is tolerating p.o. intake. Her blood pressure has improved to 122/74 without intervention with any antihypertensive. > advised to continue monitoring her blood pressure at home. Encouraged her to call her primary care provider, with whom she has already established care, for follow-up. she verbalizes understanding. Patient has remained stable throughout ED visit today. Discussed worrisome signs and symptoms and when to return to the ED. All questions answered at this time. Patient is agreeable with disposition and stable for discharge. Medications Administered Discontinued Medications Generic Name Dose Route Start Last Admin Trade Name Rameshq PRN Reason Stop Dose Admin Diphenhydramine HCl 25 mg 06/12/25 17:06/12/25 17:21 Diphenhydramine Hcl 50 Mg/Ml Vial IVPUSH 06/12/25 17:08 25 mg ONCE ONE Administration Ketorolac Tromethamine 15 mg 06/12/25 17:06/12/25 17:21 Ketorolac Tromethamine 15 Mg/Ml Vial IVPUSH 06/12/25 17:08 15 mg ONCE ONE Administration Metoclopramide HCl 10 mg 06/12/25 17:07 06/12/25 17:21 Metoclopramide Hcl 10 Mg/2 Ml Vial IVPUSH 06/12/25 17:08 10 mg ONCE ONE Administration Medical Decision Making Medical Decision Making [facility] Narrative: 30 year old female with pmhx significant for migraines presents to the ED today for evaluation of elevated blood pressure readings x weeks. Differential diagnosis includes anemia, electrolyte abnormality, dehydration, tension headache versus migraine, intracranial hemorrhage, hypertensive urgency versus emergency, elevated blood pressure Plan for labs, CT head, pain control, re-evaluation Differential Diagnosis Differential Diagnoses: The differential diagnosis associated with the presentation includes As above Admission/Observation Not indicated Lab Data [facility] Lab Attestation statement: I reviewed the patient's lab results. As above 06/12/25 13:00 06/12/25 13:00 Labs: Lab Results 06/12/25 Range/Units 13:00 WBC 6.9 (4.8-10.8) X10*3/uL RBC 4.30 (4.20-5.50) X10*6/uL Hgb 13.0 (12.0-16.0) g/dl Hct 36.3 L (37.0-47.0) % MCV 84.4 (80.0-98.0) fL MCH 30.2 (27.0-33.0) pg MCHC 35.8 H (31.0-35.0) g/dl RDW 13.2 (11.0-16.0) % Plt Count 282 (160-400) X10*3/uL MPV 9.7 (9.4-12.3) fL Immature Gran % (Auto) 0.1 (0.0-0.4) % Neut % (Auto) 48.6 (45-73) % Lymph % (Auto) 40.2 H (20-40) % [place] % (Auto) 9.2 (2-11) % Eos % (Auto) 1.3 (0-4) % Baso % (Auto) 0.6 (0-2) % Lymph # (Auto) 2.8 (1.2-4.9) X10*3/uL [place] # (Auto) 0.6 (0.1-1.2) X10*3/uL Eos # (Auto) 0.1 (0.0-0.4) X10*3/uL Baso # (Auto) 0.0 (0.0-0.2) X10*3/uL Abs Immat Gran (auto) 0.01 (0.00-0.03) X10*3/uL Absolute Neuts (auto) 3.3 (2.0-8.3) x10*3/uL Absolute Nucleated RBC 0.000 (0.0-0.012) X10*3/uL Nucleated RBC % (auto) 0.0 (0.0-0.2) /100WBC Sodium 141 (135-145) mmol/L Potassium 3.6 (3.3-5.1) mmol/L Chloride 106 (96-108) mmol/L Carbon Dioxide 27 (22-29) mmol/L Anion Gap 12 (12-20) BUN 14 (9-16) mg/dL Creatinine 0.79 (0.5-1.4) mg/dL Estim Creat Clear Calc 86.4 Estimated GFR > 60 Random Glucose 111 (60-115) mg/dL Calcium 9.0 (8.4-10.2) mg/dL Magnesium 2.2 (1.6-2.6) mg/dL Total Bilirubin 0.4 (0.0-1.0) mg/dL AST 22 (5-31) U/L ALT 19 (0-31) U/L Alkaline Phosphatase 72 (39-117) U/L Total Protein 7.0 (6.5-8.0) g/dL Albumin 4.5 (3.5-5.0) g/dL Beta HCG, Quant < 2 mIU/mL Independent Interpretation I performed an independent interpretation of an: CT Scan Interpretation: CT head without intracranial bleed or mass Radiology Impression Discussion of test interpretation with radiology: I have reviewed the radiologist's reading. Radiologist Impression: Date of Service: 06/12/25 Procedure(s): CT head/brain wo IV con Accession Number(s): [id number] cc: Physician,Unknown ; Francy Franco~ Report Number: [id number]: Total DLP = 692.00 mGy-cm EXAMINATION: CT HEAD WITHOUT CONTRAST CLINICAL INFORMATION: hypertensive, THOMPSON COMPARISON: None available. TECHNIQUE: Contiguous axial imaging was performed from the skull base to vertex without intravenous administration of contrast. This CT examination was performed using dose optimization techniques as appropriate, variously including the following: *Automated exposure control *Adjustment of mA and/or kV according to patient size (this includes techniques or standardized protocols for targeted exams where dose is matched to indication/reason for exam; i.e. extremities or head) *Use of iterative reconstruction technique DLP: 692 mGy-cm FINDINGS: No acute intracranial hemorrhage, mass effect, midline shift, hydrocephalus or herniation. Avila-white matter differentiation is normal. Posterior cranial fossa contents demonstrated no acute intracranial hemorrhage or mass effect. Normal position of the cerebellar tonsils. Sellar/suprasellar region demonstrated no gross masses or hemorrhage. Tympanic cavities and mastoid cells are aerated. Poor pneumatization of the frontal sinuses. No air-fluid levels in the paranasal sinuses. No gross hematoma or masses in the intraconal or extraconal compartments of the orbits. CT/CT head/brain wo IV con IMPRESSION: No acute or structural brain abnormality by CT. Electronically signed by: Paul Lopes MD 06/12/2025 03:27 PM EDT RP External Record Review External record reviewed: Inpatient record Prescription Management I considered prescription management with: Pain Medication Chronic Conditions Patient?s care impacted by: Other (Migraines) Social Determinants Patient?s care significantly limited by Social Determinants of Health including: Other Social Determinant of Health Critical Care Time Critical Care Time Critical Care Time: No Discharge Plan Discharge Clinical Impression: Elevated blood pressure reading, Headache Patient Disposition: Home, Self-Care Instructions: General Headache (ED) Additional Instructions: You were evaluated in the ED today for elevated blood pressure readings and headache. Your blood pressure normalized in the ED today. Your headache resolved with medications. You were a blood work and CT scan of your head are reassuring. As discussed, please continue monitoring your blood pressure at home. I recommend taking your blood pressure every other day and falling up with your primary care provider with these readings as they may need to start you on medication for your blood pressure. Return with any new or worsening symptoms. In the case of an emergency call 911. Prescriptions: No Action cefuroxime axetil 250 mg tablet 250 mg PO Q12H 7 Days Qty: 14 0RF phenazopyridine [Pyridium] 200 mg tablet 200 mg PO TID 2 Days Qty: 5 0RF lidocaine 5 % adhesive patch,medicated 1 patch topical DAILY Qty: 30 0RF Rx Instructions: leave on most painful area for up to 12 hrs diclofenac sodium 1 % gel 4 g topical QID Qty: 100 0RF Rx Instructions: apply to low back Vitamin 27 mg iron- 800 mcg tablet 1 tab PO DAILY Qty: 30 12RF Referrals: Physician,Nonstaff [Primary Care Provider, Medical] Stand Alone Forms: Work/School Release Interventions: ED Discharge Assessment Last Done: 06/12/25 18:26 Discharge Date/Time: 06/12/25 18:28 Print Language: Armenian
[2025-06-12 13:04] LABS: MANUAL DIFF FLAG NO
[2025-06-12 13:07] LABS: Hematocrit 36.3 % (37.0-47.0); Hemoglobin 13.0 g/dl (12.0-16.0); Imm Gran Abs Auto 0.01 X10*3/uL (0.00-0.03); Imm Gran Pct Auto 0.1 % (0.0-0.4); Lymphocytes Absolute Auto 2.8 X10*3/uL (1.2-4.9); Mean Corpuscular HGB Conc 35.8 g/dl (31.0-35.0); Mean Corpuscular Hemoglobin 30.2 pg (27.0-33.0); Mean Corpuscular Volume 84.4 fL (80.0-98.0); NRBC Abs Auto 0.000 X10*3/uL (0.0-0.012); NRBC Pct Auto 0.0 /100WBC (0.0-0.2); Platelet Count 282 X10*3/uL (160-400); Red Blood Count 4.30 X10*6/uL (4.20-5.50); White Blood Count 6.9 X10*3/uL (4.8-10.8)
[2025-06-12 13:28] LABS: Alanine Aminotransferase 19 U/L (0-31); Albumin Level 4.5 g/dL (3.5-5.0); Alkaline Phosphatase 72 U/L (39-117); Anion Gap 12 (12-20); Aspartate Amino Transferase 22 U/L (5-31); Blood Urea Nitrogen 14 mg/dL (9-16); Calcium 9.0 mg/dL (8.4-10.2); Carbon Dioxide 27 mmol/L (22-29); Chloride 106 mmol/L (96-108); Creatinine Clr Calc Pharmacy 86.4; Estimated Glomerular Filt Rate > 60; Magnesium 2.2 mg/dL (1.6-2.6); Potassium 3.6 mmol/L (3.3-5.1); Sodium 141 mmol/L (135-145); Total Protein 7.0 g/dL (6.5-8.0)
[2025-06-12 16:18] VITALS: BP 147/91; PULSE 88; RESP 16; TEMP 36.3; O2SAT 100
[2025-06-12 16:44] VITALS: BP 146/102; PULSE 86; RESP 16; TEMP 36.8; O2SAT 100
--- NOTE | 2025-06-12 16:59 | PC.NURSE ---
Patient is a 30 year old female who was recently seen for elevated blood pressure and was informed to monitor her blood pressure for 2 weeks. She present to the ED today for evaluation of elevated blood pressure readings x 2 weeks with an assoc THOMPSON. She has not followed up with a PCP. Patient c/o THOMPSON. No neuro deficits noted. Lungs clear bilat. Respirations even and non-labored. Abdomen soft, non-tender with positive bowel sounds. Positive pedal pulses with no edema.
--- OUTSIDE RECORDS SUMMARY | 2025-06-12 17:01 | XMS_ITS | Clinical Summary ---
Author Organization [facility] ity Address [address] [place] [address] Care Team Providers Care Manager Hris Name Role Phone Gilmar Jhoanjaylin Primary Care Provider [phone] Family History Relation Name Status Comments Brother Alive 4,healthy Father Alive healthy Mother Alive healthy Sister Alive 1,healthy Social History Tobacco Use Types Packs/Day Years Used Date Smoking Tobacco: Never Smokeless Tobacco: Never Alcohol Use Standard Drinks/Week Comments Yes 0 (1 standard drink = 0.6 oz pur e alcohol) Comments Unknown Sex and Gender Information Value Date Recorded Sex Assigned at Not on file Legal Sex Female 10:07 PM EST Gender Identity Not on file Sexual Orientation Not on file Obstetrics History Plan of Treatment Health Maintenance Due Date Last Done Comments Hepatitis B Vaccines (2 of 3 - 19+ 3-dose series) 07/05/2013 06/07/2013 Cervical Cancer Screening: P ap Smear 2015 DTaP,Tdap,and Td Vaccines (2 - Td or Tdap) 05/12/2023 05/12/2013 Depression Screening 12/28/2023 HIV Screening 12/28/2023 Hepatitis C Screening 12/28/2023 Social Influencers of Health Screening 12/28/2023 COVID-19 Vaccine ( - 2023-2 5 season) 2024 Influenza Vaccine (#1) 2025 MMR Vaccines Aged Out 06/16/2013 No longer eligi ble based on patient's age to complete this topic HIB Vaccines Aged Out No longer eligi ble based on patient's age to complete this topic HPV Vaccines Aged Out No longer eligi ble based on patient's age to complete this topic Hepatitis A Vaccines Aged Out No long er eligible based on patient's age to complete this topic IPV Vaccines Aged Out No longer eligi ble based on patient's age to complete this topic Meningococcal ACWY Vaccine Aged Out N o longer eligible based on patient's age to complete this topic Meningococcal B Vaccine Aged Out No l onger eligible based on patient's age to complete this topic Pneumococcal Vaccine: Pediat rics (0 to 5 Years) and At-Risk Patients (6 to 49 Years) Aged Out No longer eligi ble based on patient's age to complete this topic RSV Immunization Patients Un jeimy 20 months Aged Out No longer eligible b ased on patient's age to complete this topic Varicella Vaccines Aged Out No longer eligible based on patient's age to complete this topic Care Teams Manager Hris Relationship Specialty Start Date End Date Obed Schafer DO [address] [place] [id number] PCP - General 11/19/22
[2025-06-12 18:08] VITALS: BP 122/74; PULSE 76; RESP 16; TEMP 36.4; O2SAT 97
[2025-06-12 18:26] VITALS: BP 122/74; PULSE 76; RESP 16; TEMP 36.4; O2SAT 97
== END 2025-06-12 18:28 | disposition home or self-care (01) ==
PROVIDERS: Physician Assistant Medical; Emergency Provider Emergency Medicine Emergency Medical Services
DX: R51.9 Headache, unspecified (principal); R03.0 Elevated blood-pressure reading, without diagnosis of hypertension; R10.2 Pelvic and perineal pain; Z79.899 Other long term (current) drug therapy
CPT/HCPCS: 36415; 70450; 80053; 83735; 84702; 85025; 96374; 96375; 99284; J1200; J1885; J2765

== ENCOUNTER → 2025-06-12 12:51 | Outpatient (BNV) | payer OTHER, SELFPAY | PROVIDERS: Visit Provider Radiology Diagnostic Radiology | DX: R51.9 Headache, unspecified (principal); I10 Essential (primary) hypertension | CPT/HCPCS: 70450 ==